=== PATIENT | male | born 1950 | race Two or more races ===

== ENCOUNTER 2019-01-15 11:42 | Emergency (ER) | payer MEDICARE, MEDICAID ==
[~2019-01-15] VITALS: Ht 170.2 cm; Wt 93.0 kg
--- NOTE | 2019-01-15 11:45 | NUR ---
PT BIBRA TO ED BED 08. PER REPORT PT WAS NOTED TO BE CONFUSED WHILE AT WORK PLACE. PT IS FARSI SPEAKING W/ [employer] LE[employer] GENERATION PT SEEMS TO BE ALERT AND ORIENTED. PT HAS NO NEURO DEFECIT UPON INITIAL ASSESSMENT. AND STATESE HE FEELS FINE AND NEEDS TO GO BACK TO WORK. STABLE VITALS. DR LING AT BEDSIDE FOR EVAL.
--- NOTE | 2019-01-15 12:15 | NUR ---
Patient discharged to home in stable condition. Written and verbal after care instructions given. Patient verbalizes understanding of instruction.
[2019-01-15 12:16] VITALS: BP 154/89
== END 2019-01-15 12:16 | disposition home or self-care (01) ==
LOC: ER 11:44
DX: R03.0 Elevated blood-pressure reading, without diagnosis of hypertension (principal); R29.818 Other symptoms and signs involving the nervous system